=== PATIENT | female | born 1970 ===

== ENCOUNTER 2021-02-10 17:38 | Emergency (ER) | payer SELFPAY ==
[~2021-02-10] VITALS: Ht 167.6 cm; Wt 82.9 kg
[2021-02-10 17:42] VITALS: BP 140/87
[2021-02-10] MEDS ORDERED: LIDOCAINE-MPF 1%, 5ML INFIL ONE (18:00)
[2021-02-10] MEDS ORDERED: DIPH,PERTUSS(ACELL),TET VAC/PF 0.5 ML IM-VACC ONE ×2 (18:00→20:25)
[2021-02-10] MEDS ORDERED: LIDOCAINE-MPF 1%, 5ML ONE (20:24)
--- NOTE | 2021-02-10 20:28 | NUR ---
NOT IN LOBBY.
--- NOTE | 2021-02-10 21:24 | NUR ---
PT CALLED FOR LAC REPAIR. NA X 2
--- NOTE | 2021-02-10 21:39 | NUR ---
PT CALLED TO ROOM. NA X 3
== END 2021-02-10 21:42 | disposition left against medical advice (07) ==
LOC: ED 17:45
DX: S61.212A Laceration without foreign body of right middle finger without damage to nail, initial encounter (principal); W26.9XXA Contact with unspecified sharp object(s), initial encounter; Y93.89 Activity, other specified; Y92.89 Other specified places as the place of occurrence of the external cause; Y99.8 Other external cause status
CPT/HCPCS: 99281